=== PATIENT | female | born 2000 | race Two or more races ===

== ENCOUNTER 2019-07-07 23:30 | Inpatient (IN) ==
[2019-07-08 00:38] LABS: Albumin Level 3.7 gm/dl (3.4-5.0); BUN Creatinine Ratio 10.4 (10-20); Bilirubin,Total 0.3 mg/dl (0.2-1); Calcium 8.7 mg/dl (8.5-10.1); Creatinine Clr Calc Pharmacy 137.3 ml/min; Est GFR (African American) 144.2; Est GFR (Non-African American) 124.4; Total Protein 8.5 gm/dl (6.4-8.2)
[2019-07-08 01:04] LABS: Basophils # (auto) 0.03 K/uL (0-0.2); Basophils % (auto) 0.3 %; Eosinophils # (auto) 0.11 K/uL (0-0.5); Eosinophils % (auto) 1.1 %; Hematocrit (blood only) 37.5 % (37-47); Hemoglobin 12.2 g/dL (12.0-16.0); Immature Granulocytes # (auto) 0.02 K/uL (0.00-0.02); Immature Granulocytes % (auto) 0.2 %; Lymphocytes # (auto) 2.62 K/uL (1.2-3.4); Lymphocytes % (auto) 26.3 %; Mean Corpuscular Hgb Conc 32.5 g/dL (32-36); Monocytes # (auto) 1.01 K/uL (0.11-0.59); Monocytes % (auto) 10.1 %; Neutrophils # (auto) 6.19 K/uL (1.4-6.5); Platelet Count 248 K/uL (130-400); RDW Coefficient of Variation 13.6 % (11.5-14.5); RDW Standard Deviation 42.7 fL (36.4-46.3); Red Blood Count 4.36 M/uL (4.2-5.4); White Blood Count 9.98 K/uL (4.8-10.8)
[2019-07-08] MEDS ORDERED: cefOXitin 2,000 MG/60 ML BAG IV STA (01:05)
[2019-07-08 01:16] LABS: Potassium 3.9 mmol/L (3.5-5.1)
[2019-07-08 01:18] LABS: Pregnancy Test, Urine Negative (Negative)
[2019-07-08 01:20] LABS: Appearance Urine Cloudy (Clear); Bacteria Urine Automated 1+ (Negative); Bilirubin Urine Negative (Negative); Blood Urine Negative (Negative); Color Urine Yellow; Epithelial Cell Urine Auto >30 /lpf (0-5); Glucose Urine UA Negative (Negative); Ketones Urine Negative (Negative); Leukocyte Esterase Urine Negative (Negative); Nitrite Urine Negative (Negative); Protein Urine Negative (Negative); RBC Urine Automated 0-4 /hpf (0-4); Specific Gravity Urine 1.021 (1.000-1.030); Urobilinogen Urine Negative (Negative); pH Urine 7.5 (4.5-7.5)
[2019-07-08 01:22] LABS: Aspartate Aminotransferase 8 U/L (15-37); Bilirubin Direct < 0.1 mg/dl (0-0.2)
--- NOTE | 2019-07-08 01:23 | Surgery Consultation ---
Date of Consultation July 08, 2019 Assessment & Plan (1) Acute cholecystitis due to biliary calculus: pt is a 19 year-old female who presents to ER with 2 days history RUQ pain, U/S dx acute cholecystitis with gallstone, IMP: acute cholecystitis with gallstone, PLan, I recommend to admit to hospital NPO, IV fluid, antibiotic, repeat labs in am, possible to do laparoscopic cholecystectomy possible open or cholangiogram tomorrow, D/W benefits, risks and alternatives of the surgery, the risks - infection, bleeding injury CBD, bowel, pt understood, she agrees with the surgery, I answered all questions, History of Present Illness History of Present Illness CC: abdominal pain HPI: pt is a 19 year-old female who presents to ER with 2 days history RUQ pain with nausea and vomiting, the pain is located at RUQ, pt denies fever, no diarrhea, pt had U/S study dx acute cholecystitis, with gallstone. otherwise pt is healthy. Allergies Allergy/AdvReac Type Severity Reaction Status Date / Time No Known Allergies Allergy Unverified 07/08/19 00:44 Home Medications Home Medications Medication Instructions Recorded Confirmed Type No Known Home Medications 07/08/19 07/08/19 History Patient History Medical History No pertinent past medical history Surgical History No pertinent past surgical history Family History Other High cholesterol Hypertension Pre-diabetes Social History Feels Safe at Home: Yes Smoking Status: Never smoker Review of Systems Review of Systems: All systems reviewed & are unremarkable except as noted in HPI & below Physical Exam Constitutional: WD/WN, vitals as above well developed and well nourished ENMT: external ear and nose normal, oropharynx normal Neck: trachea midline, no thyromegaly Respiratory: normal respiratory effort, lungs clear to auscultation normal respiratory effort Cardiovascular: RRR, no murmur, no edema Rate/Rhythm: regular rate and regular rhythm Heart Sounds: normal S1 and normal S2 Gastrointestinal (Abdomen): Percussion/Palpation: abdomen soft tenderness at RUQ, no rebound pain, BS +, no distend Musculoskeletal: no cyanosis or clubbing, extremities motor strength 5/5 Skin: no rashes, warm and dry Neurologic: patellar DTR's 2+ bilat, sensation intact Psychiatric: Orientation: alert and oriented x 3 Results & Data Vital Signs (Past 12 Hours) Vital Signs Temp Pulse Resp BP Pulse Ox 07/07/19 23:33 36.9 C 94 H 16 119/71 98 Laboratory Results Abnormal lab results 07/08/19 07/08/19 07/08/19 Range/Units 00:04 00:43 00:43 MPV 11.0 H (7.4-10.4) fL [place] # (Auto) 1.01 H (0.11-0.59) K/uL Glucose 113 H (70-99) mg/dl AST 8 L (15-37) U/L Total Protein 8.5 H (6.4-8.2) gm/dl Lipase 54 L (73-393) U/L Diagnostic Findings I reviewed U/S- acute cholecystitis with gallstone
[2019-07-08] MEDS ORDERED: PIPERACILL/TAZOBAC CONSULT ACTIVE PRN (01:28)
[2019-07-08] MEDS ORDERED: PIPERACILLIN/TAZOBACTAM 3.375 GM in DEXTROSE 5% 100 ML IV SCH (01:30)
[2019-07-08] MEDS ORDERED: PIPERACILLIN/TAZOBACTAM 4.5 GM in DEXTROSE 5% 100 ML IV ONE (02:30)
[2019-07-08] MEDS: LACTATED RINGER'S 1,000 ML IV SCH ×3 (02:50→23:43)
--- NOTE | 2019-07-08 06:29 | Ultrasound Report ---
US gallbladder HISTORY: 19 years-old Female RUQ abdominal pain acute right upper quadrant abdominal pain COMPARISON: None available TECHNIQUE: Multiple real-time sonographic images of the abdominal right upper quadrant were obtained assessing grayscale appearance and color flow FINDINGS: Pancreas is mostly obscured by bowel gas. The liver appears unremarkable. Large gallstone within the gallbladder neck measures up to 2.7 cm. Thickened edematous gallbladder wall measures up to 5 mm. Ariana pected trace pericholecystic fluid. Mild layering gallbladder sludge. Sonographic Joseph sign reporte d as negative. Imaged right kidney is unremarkable without hydronephrosis. Normal common bile duct, 3 mm. IMPRESSION: 1. Cholelithiasis with gallbladder wall thickening and trace pericholecystic fluid suggests acute cho lecystitis. 2. No biliary ductal dilation. The above report was generated using voice recognition software. It may contain grammatical, syntax o r spelling errors. Electronically signed by: Damon Ramon M.D. 07/08/2019 6:27 AM
--- NOTE | 2019-07-08 06:47 | Emergency Department Note ---
Entered by Nicolás Abbott acting as a scribe for ED Provider Note Name: Mojgan Zhang Age: 19 Arrives Via: Triage Informant: Self CC: RUQ abdominal pain HPI: 19 y/o female arrives for evaluation of worsening RUQ abdominal pain beginning a two days ago. The patient states her symptoms have been intermittent since Wednesday. She reports she went to sleep last evening with her pain and it was still there when she woke up. The patient notes throughout the day it has been worsening and constant. She states she cannot touch it without worsening her discomfort. The patient reports she has mild discomfort with deep breathing as well. She notes she has a low appetite but eats because she knows she needs to. The patient states she uses alcohol but has not had any for the past few days. She reports her last menstrual period ended on the 28 of June. The patient denies vomiting, trouble defecating, urinary burning, changes in her urinary frequency, cough, chest pain, headaches, rashes, taking medication daily, drug use, lower abdominal pain, legs swelling, recent travel, vision changes, sore throat, and leg pain. She notes her mother had a cholecystectomy because she had gastric bypass surgery. ROS: See above HPI for pertinent positives & negatives. A total of 10 systems reviewed and were otherwise negative. Past Medical History: None Past Surgical History: None Family History: HTN, high cholesterol, pre-diabetes Social History: Alcohol use, denies drug use. Home Medications: None Allergies None Physical: Vitals: BP 119/71, Pulse 94, Resp 16, Temp 98.4 F, O2Sat 98 on RA. Exam: GENERAL: Patient is uncomfortable appearing and in mild distress. EYES: No scleral icterus, unremarkable pupils. ENT: Mucous membranes moist, no nasal congestion. NECK: No masses appreciated, no meningismus, trachea is midline. RESPIRATORY: No dyspnea. Clear to auscultation and equal bilaterally. No wheeze, no rhonchi. CARDIOVASCULAR: Regular rate and rhythm. No murmurs, rubs, gallops appreciated. GASTROINTESTINAL: Abdomen soft, RUQ tenderness to palpation, no peritonitis. Bowel sounds positive. No masses appreciated. BACK: No midline tenderness, no CVA tenderness EXTREMITIES: Normal motion all extremities, no cyanosis, no edema. NEUROLOGIC: Alert and oriented, no acute motor or sensory deficits, no focal weakness, cranial nerves grossly intact. SKIN: No rash, no jaundice, no diaphoresis. ED Course: Prior Medical Record, Triage/Nursing Notes, Medications, Allergies reviewed by Me Vital Signs: reviewed and remarkable for wnl Labs: Reviewed and remarkable for wnl Interventions: saline lock, mefoxin 2gm IV Imaging: [facility] Radiologist interpretation reviewed by me: US Gallbladder - Acute Calculous Cholecystitis. Consults: Dr Pino accepts to his service Reassessments/Times: 2342: Past medical records reviewed. The patient was evaluated in room B04B. A complete history and physical exam was performed. 0101: I reviewed the patient's case with Dr. Pino, General Surgery. He will evaluate the patient for further management. 0105: Upon reevaluation, the patient is resting comfortably. I discussed laboratory and radiographic results with her. She verbalized agreement of the treatment plan. The patient will be evaluated for further management and care. 0118: Dr. Pino informed the nursing staff the patient will be admitted and have surgery tomorrow. 0122: I discussed the patient's case with the mother via FaceTime. I discussed the plan for admission and how she will have her gallbladder removed in the morning. She is in agreement with this plan. Blood pressure: Normal. No Referral necessary Disposition: Hospitalization Differentials: Differential diagnoses includes but is not limited to gastritis, peptic ulcer disease, GERD, gallbladder disease, pancreatitis, small bowel obstruction, pericarditis, ischemic bowel, irritable bowel disease, irritable b owel syndrome, appendicitis, diverticulitis, malignancy, hernia, urinary tract infection, torsion, /ectopic , perforation, trauma, infectious. Medical Decision Making: Pleasant 19 yr old female with intermittent acute RUQ pain over last few days now constant. She is quite uncomfortable on arrival but declines pain medications. US consistent with cholecystitis. Labs OK. She is stable, without other abdominal TTP. Surgeon down to evaluate and will bring in for surgical correction. Impression: Acute Cholecystitis Due To Biliary Calculus Pino Jiang MD The scribe's documentation has been prepared under my direction and personally reviewed by me in its entirety. I confirm that the note above accurately reflects all work, treatment, procedures, and medical decision making performed by me. Impression & Plan Acute cholecystitis due to biliary calculus Past Med/Surg History Medical History No pertinent past medical history Surgical History No pertinent past surgical history Family History Other High cholesterol Hypertension Pre-diabetes Social History Preferred Language: [place] Communication Ability: Effective Eligibility Counselor Required: No Beliefs That Will Affect Care: None Current Living Situation: Other Current Living Situation Comment: Lives in apartment with [employer] roomates. Other Information That Helps Us Care for You: No Feels Safe at Home: Yes Safety Concerns: Feels Safe At This Time Smoking Status: Never smoker Second Hand Exposure: No ; Hx Alcohol Use: Yes Alcohol type: beer and hard liquor Hx Substance Use: No Results & Data Vital Signs Vital Signs - 24 hr 07/07/19 23:33 07/08/19 01:00 Temperature 36.9 C Temperature Source Oral Sepsis Recent Fever Within 48 Hours No Sepsis Action Taken by Nursing No Action Required Pulse Rate 94 H Pulse Rate [Right Finger] 80 Pulse Rhythm [Right Finger] Regular Pulse Strength [Right Finger] Normal Respiratory Rate 16 16 Respiratory Effort / Characteristics Non-Labored Spontaneous Non-Labored Respiratory Depth Normal Normal Respiratory Pattern Regular Blood Pressure 119/71 Blood Pressure [Right Arm] 120/76 Blood Pressure Mean 87 Blood Pressure Mean [Right Arm] 90 Blood Pressure Position Sitting Blood Pressure Position [Right Arm] Lying Pulse Oximetry 98 99 Oxygen Delivery Method Room Air Room Air Laboratory Data Result diagrams: 07/08/19 00:43 07/08/19 00:43 Lab Results 07/08/19 07/08/19 07/08/19 Range/Units 00:04 00:04 00:43 WBC Cancelled 9.98 RBC Cancelled 4.36 Hgb Cancelled 12.2 Hct Cancelled 37.5 MCV Cancelled 86.0 MCH Cancelled 28.0 MCHC Cancelled 32.5 RDW Std Deviation Cancelled 42.7 RDW Coeff of Florentino Cancelled 13.6 Plt Count Cancelled 248 MPV Cancelled 11.0 H Immature Gran % (Auto) Cancelled 0.2 Neut % (Auto) Cancelled 62.0 Lymph % (Auto) Cancelled 26.3 [place] % (Auto) Cancelled 10.1 Eos % (Auto) Cancelled 1.1 Baso % (Auto) Cancelled 0.3 Immature Gran # (Auto) Cancelled 0.02 Neut # (Auto) Cancelled 6.19 Lymph # (Auto) Cancelled 2.62 [place] # (Auto) Cancelled 1.01 H Eos # (Auto) Cancelled 0.11 Baso # (Auto) Cancelled 0.03 Absolute Nucleated RBC Cancelled Nucleated RBC % (auto) Cancelled Neutrophils % (Manual) Cancelled Band Neutrophils % Cancelled Lymphocytes % (Manual) Cancelled Prolymphocyte % Cancelled Reactive Lymphs % (Man) Cancelled Monocytes % (Manual) Cancelled Eosinophils % (Manual) Cancelled Basophils % (Manual) Cancelled Metamyelocytes % (Man) Cancelled Myelocytes % (Man) Cancelled Promyelocytes % (Man) Cancelled Blast Cells % (Manual) Cancelled Plasma Cell % (Manual) Cancelled Other Cells % Cancelled Nucleated RBC % Cancelled Neutrophils # (Manual) Cancelled Band Neutrophils # Cancelled Total Absolute Neuts Cancelled Lymphocytes # (Manual) Cancelled Prolymphocyte # Cancelled Reactive Lymphs # Cancelled Total Abs Lymphocytes Cancelled Monocytes # (Manual) Cancelled Eosinophils # (Manual) Cancelled Basophils # (Manual) Cancelled Metamyelocytes # (Man) Cancelled Myelocytes # (Manual) Cancelled Promyelocytes # (Man) Cancelled Blast Cells # (Man) Cancelled Plasma Cell # (Manual) Cancelled Other Cells # Cancelled Nucleated RBCs # (Man) Cancelled Hypersegmented Neuts Cancelled Hyposegmented Neuts Cancelled Hypogranular Neuts Cancelled Large Granular Lymphs Cancelled # Lrg Granular Lymphs Cancelled Hairy Cells Cancelled Smudge Cells Cancelled Toxic Granulation Cancelled Toxic Vacuolation Cancelled Dohle Bodies Cancelled Mehdi Rods Cancelled Platelet Estimate Cancelled Hypogranular Platelets Cancelled Clumped Platelets Cancelled Giant Platelets Cancelled Platelet Satelliting Cancelled RBC Morphology Cancelled Polychromasia Cancelled Hypochromasia Cancelled Poikilocytosis Cancelled Basophilic Stippling Cancelled Anisocytosis Cancelled Microcytosis Cancelled Macrocytosis Cancelled Spherocytes Cancelled Pappenheimer Bodies Cancelled Sickle Cells Cancelled Target Cells Cancelled Tear Drop Cells Cancelled Ovalocytes Cancelled Stomatocytes Cancelled Christianson-Lombard Bodies Cancelled Echinocytes Cancelled Acanthocytes (Spur) Cancelled Rouleaux Cancelled RBC Agglutinates Cancelled Schistocytes Cancelled RBC Morph Comment Cancelled Sezary Cell Cancelled Sodium 138 (136-145) mmol/L Potassium (3.5-5.1) mmol/L Chloride 107 (98-107) mmol/L Carbon Dioxide 26 (21-32) mmol/L Anion Gap 5.0 (3-11) BUN 7 (7-18) mg/dl Creatinine 0.69 (0.6-1.2) mg/dl Est Cr Clr Drug Dosing 137.3 ml/min Est GFR ( Amer) 144.2 Est GFR (Non-Af Amer) 124.4 BUN/Creatinine Ratio 10.4 (10-20) Glucose 113 H (70-99) mg/dl Calcium 8.7 (8.5-10.1) mg/dl Total Bilirubin 0.3 (0.2-1) mg/dl Direct Bilirubin (0-0.2) mg/dl AST (15-37) U/L ALT 17 (12-78) U/L Alkaline Phosphatase 72 (45-117) U/L Total Protein 8.5 H (6.4-8.2) gm/dl Albumin 3.7 (3.4-5.0) gm/dl Lipase 54 L (73-393) U/L Urine Color Urine Appearance (Clear) Urine pH (4.5-7.5) Ur Specific [place] (1.000-1.030) Urine Protein (Negative) Urine Glucose (UA) (Negative) Urine Ketones (Negative) Urine Blood (Negative) Urine Nitrite (Negative) Urine Bilirubin (Negative) Urine Urobilinogen (Negative) Ur Leukocyte Esterase (Negative) Urine WBC (Auto) (0-5) /hpf Urine RBC (Auto) (0-4) /hpf U Hyaline Cast (Auto) (0-5) /lpf U Epithel Cells (Auto) (0-5) /lpf Urine Bacteria (Auto) (Negative) Urine Test (Negative) 07/08/19 07/08/19 07/08/19 Range/Units 00:43 01:02 01:02 WBC RBC Hgb Hct MCV MCH MCHC RDW Std Deviation RDW Coeff of Florentino Plt Count MPV Immature Gran % (Auto) Neut % (Auto) Lymph % (Auto) [place] % (Auto) Eos % (Auto) Baso % (Auto) Immature Gran # (Auto) Neut # (Auto) Lymph # (Auto) [place] # (Auto) Eos # (Auto) Baso # (Auto) Absolute Nucleated RBC Nucleated RBC % (auto) Neutrophils % (Manual) Band Neutrophils % Lymphocytes % (Manual) Prolymphocyte % Reactive Lymphs % (Man) Monocytes % (Manual) Eosinophils % (Manual) Basophils % (Manual) Metamyelocytes % (Man) Myelocytes % (Man) Promyelocytes % (Man) Blast Cells % (Manual) Plasma Cell % (Manual) Other Cells % Nucleated RBC % Neutrophils # (Manual) Band Neutrophils # Total Absolute Neuts Lymphocytes # (Manual) Prolymphocyte # Reactive Lymphs # Total Abs Lymphocytes Monocytes # (Manual) Eosinophils # (Manual) Basophils # (Manual) Metamyelocytes # (Man) Myelocytes # (Manual) Promyelocytes # (Man) Blast Cells # (Man) Plasma Cell # (Manual) Other Cells # Nucleated RBCs # (Man) Hypersegmented Neuts Hyposegmented Neuts Hypogranular Neuts Large Granular Lymphs # Lrg Granular Lymphs Hairy Cells Smudge Cells Toxic Granulation Toxic Vacuolation Dohle Bodies Mehdi Rods Platelet Estimate Hypogranular Platelets Clumped Platelets Giant Platelets Platelet Satelliting RBC Morphology Polychromasia Hypochromasia Poikilocytosis Basophilic Stippling Anisocytosis Microcytosis Macrocytosis Spherocytes Pappenheimer Bodies Sickle Cells Target Cells Tear Drop Cells Ovalocytes Stomatocytes Christianson-Lombard Bodies Echinocytes Acanthocytes (Spur) Rouleaux RBC Agglutinates Schistocytes RBC Morph Comment Sezary Cell Sodium (136-145) mmol/L Potassium 3.9 (3.5-5.1) mmol/L Chloride (98-107) mmol/L Carbon Dioxide (21-32) mmol/L Anion Gap (3-11) BUN (7-18) mg/dl Creatinine (0.6-1.2) mg/dl Est Cr Clr Drug Dosing ml/min Est GFR ( Amer) Est GFR (Non-Af Amer) BUN/Creatinine Ratio (10-20) Glucose (70-99) mg/dl Calcium (8.5-10.1) mg/dl Total Bilirubin (0.2-1) mg/dl Direct Bilirubin < 0.1 (0-0.2) mg/dl AST 8 L (15-37) U/L ALT (12-78) U/L Alkaline Phosphatase (45-117) U/L Total Protein (6.4-8.2) gm/dl Albumin (3.4-5.0) gm/dl Lipase (73-393) U/L Urine Color Yellow Urine Appearance Cloudy A (Clear) Urine pH 7.5 (4.5-7.5) Ur Specific [place] 1.021 (1.000-1.030) Urine Protein Negative (Negative) Urine Glucose (UA) Negative (Negative) Urine Ketones Negative (Negative) Urine Blood Negative (Negative) Urine Nitrite Negative (Negative) Urine Bilirubin Negative (Negative) Urine Urobilinogen Negative (Negative) Ur Leukocyte Esterase Negative (Negative) Urine WBC (Auto) 1-5 (0-5) /hpf Urine RBC (Auto) 0-4 (0-4) /hpf U Hyaline Cast (Auto) 1-5 (0-5) /lpf U Epithel Cells (Auto) >30 H (0-5) /lpf Urine Bacteria (Auto) 1+ H (Negative) Urine Test Negative (Negative) Administered Medications Lactated Ringer's (Lr) 1,000 mls @ 100 mls/hr IV .Q10H MIN Stop: 08/07/19 01:29 Last Infusion: 07/08/19 06:31 Dose: 100 mls/hr Documented by: [id number] Infusion: 07/08/19 03:33 Dose: 100 mls/hr Documented by: [id number] Infusion: 07/08/19 02:57 Dose: 0 mls/hr Documented by: [id number] Admin: 07/08/19 02:50 Dose: 100 mls/hr Documented by: [id number] Discontinued Medications Cefoxitin Sodium (Mefoxin) 2,000 mg in 60 mls @ 100 mls/hr IV NOW STA Stop: 07/08/19 01:40 Last Infusion: 07/08/19 02:07 Dose: 0 mls/hr Documented by: [id number] Admin: 07/08/19 01:35 Dose: 100 mls/hr Documented by: [id number] Piperacillin Sod/Tazobactam (Sod 4.5 gm/ Dextrose) 120 mls @ 200 mls/hr IV NOW ONE; Protocol Stop: 07/08/19 03:05 Last Infusion: 07/08/19 03:33 Dose: 0 mls/hr Documented by: [id number] Admin: 07/08/19 02:57 Dose: 200 mls/hr Documented by: [id number] Medical Decision Making Laboratory Data Result diagrams: 07/08/19 00:43 07/08/19 00:43 Lab Results 07/08/19 07/08/19 07/08/19 Range/Units 00:04 00:04 00:43 WBC Cancelled 9.98 RBC Cancelled 4.36 Hgb Cancelled 12.2 Hct Cancelled 37.5 MCV Cancelled 86.0 MCH Cancelled 28.0 MCHC Cancelled 32.5 RDW Std Deviation Cancelled 42.7 RDW Coeff of Florentino Cancelled 13.6 Plt Count Cancelled 248 MPV Cancelled 11.0 H Immature Gran % (Auto) Cancelled 0.2 Neut % (Auto) Cancelled 62.0 Lymph % (Auto) Cancelled 26.3 [place] % (Auto) Cancelled 10.1 Eos % (Auto) Cancelled 1.1 Baso % (Auto) Cancelled 0.3 Immature Gran # (Auto) Cancelled 0.02 Neut # (Auto) Cancelled 6.19 Lymph # (Auto) Cancelled 2.62 [place] # (Auto) Cancelled 1.01 H Eos # (Auto) Cancelled 0.11 Baso # (Auto) Cancelled 0.03 Absolute Nucleated RBC Cancelled Nucleated RBC % (auto) Cancelled Neutrophils % (Manual) Cancelled Band Neutrophils % Cancelled Lymphocytes % (Manual) Cancelled Prolymphocyte % Cancelled Reactive Lymphs % (Man) Cancelled Monocytes % (Manual) Cancelled Eosinophils % (Manual) Cancelled Basophils % (Manual) Cancelled Metamyelocytes % (Man) Cancelled Myelocytes % (Man) Cancelled Promyelocytes % (Man) Cancelled Blast Cells % (Manual) Cancelled Plasma Cell % (Manual) Cancelled Other Cells % Cancelled Nucleated RBC % Cancelled Neutrophils # (Manual) Cancelled Band Neutrophils # Cancelled Total Absolute Neuts Cancelled Lymphocytes # (Manual) Cancelled Prolymphocyte # Cancelled Reactive Lymphs # Cancelled Total Abs Lymphocytes Cancelled Monocytes # (Manual) Cancelled Eosinophils # (Manual) Cancelled Basophils # (Manual) Cancelled Metamyelocytes # (Man) Cancelled Myelocytes # (Manual) Cancelled Promyelocytes # (Man) Cancelled Blast Cells # (Man) Cancelled Plasma Cell # (Manual) Cancelled Other Cells # Cancelled Nucleated RBCs # (Man) Cancelled Hypersegmented Neuts Cancelled Hyposegmented Neuts Cancelled Hypogranular Neuts Cancelled Large Granular Lymphs Cancelled # Lrg Granular Lymphs Cancelled Hairy Cells Cancelled Smudge Cells Cancelled Toxic Granulation Cancelled Toxic Vacuolation Cancelled Dohle Bodies Cancelled Mehdi Rods Cancelled Platelet Estimate Cancelled Hypogranular Platelets Cancelled Clumped Platelets Cancelled Giant Platelets Cancelled Platelet Satelliting Cancelled RBC Morphology Cancelled Polychromasia Cancelled Hypochromasia Cancelled Poikilocytosis Cancelled Basophilic Stippling Cancelled Anisocytosis Cancelled Microcytosis Cancelled Macrocytosis Cancelled Spherocytes Cancelled Pappenheimer Bodies Cancelled Sickle Cells Cancelled Target Cells Cancelled Tear Drop Cells Cancelled Ovalocytes Cancelled Stomatocytes Cancelled Christianson-[place]omb[place] Bodies Cancelled Echinocytes Cancelled Acanthocytes (Spur) Cancelled Rouleaux Cancelled RBC Agglutinates Cancelled Schistocytes Cancelled RBC Morph Comment Cancelled Sezary Cell Cancelled Sodium 138 (136-145) mmol/L Potassium (3.5-5.1) mmol/L Chloride 107 (98-107) mmol/L Carbon Dioxide 26 (21-32) mmol/L Anion Gap 5.0 (3-11) BUN 7 (7-18) mg/dl Creatinine 0.69 (0.6-1.2) mg/dl Est Cr Clr Drug Dosing 137.3 ml/min Est GFR ( Amer) 144.2 Est GFR (Non-Af Amer) 124.4 BUN/Creatinine Ratio 10.4 (10-20) Glucose 113 H (70-99) mg/dl Calcium 8.7 (8.5-10.1) mg/dl Total Bilirubin 0.3 (0.2-1) mg/dl Direct Bilirubin (0-0.2) mg/dl AST (15-37) U/L ALT 17 (12-78) U/L Alkaline Phosphatase 72 (45-117) U/L Total Protein 8.5 H (6.4-8.2) gm/dl Albumin 3.7 (3.4-5.0) gm/dl Lipase 54 L (73-393) U/L Urine Color Urine Appearance (Clear) Urine pH (4.5-7.5) Ur Specific [place] (1.000-1.030) Urine Protein (Negative) Urine Glucose (UA) (Negative) Urine Ketones (Negative) Urine Blood (Negative) Urine Nitrite (Negative) Urine Bilirubin (Negative) Urine Urobilinogen (Negative) Ur Leukocyte Esterase (Negative) Urine WBC (Auto) (0-5) /hpf Urine RBC (Auto) (0-4) /hpf U Hyaline Cast (Auto) (0-5) /lpf U Epithel Cells (Auto) (0-5) /lpf Urine Bacteria (Auto) (Negative) Urine Test (Negative) 07/08/19 07/08/19 07/08/19 Range/Units 00:43 01:02 01:02 WBC RBC Hgb Hct MCV MCH MCHC RDW Std Deviation RDW Coeff of Florentino Plt Count MPV Immature Gran % (Auto) Neut % (Auto) Lymph % (Auto) [place] % (Auto) Eos % (Auto) Baso % (Auto) Immature Gran # (Auto) Neut # (Auto) Lymph # (Auto) [place] # (Auto) Eos # (Auto) Baso # (Auto) Absolute Nucleated RBC Nucleated RBC % (auto) Neutrophils % (Manual) Band Neutrophils % Lymphocytes % (Manual) Prolymphocyte % Reactive Lymphs % (Man) Monocytes % (Manual) Eosinophils % (Manual) Basophils % (Manual) Metamyelocytes % (Man) Myelocytes % (Man) Promyelocytes % (Man) Blast Cells % (Manual) Plasma Cell % (Manual) Other Cells % Nucleated RBC % Neutrophils # (Manual) Band Neutrophils # Total Absolute Neuts Lymphocytes # (Manual) Prolymphocyte # Reactive Lymphs # Total Abs Lymphocytes Monocytes # (Manual) Eosinophils # (Manual) Basophils # (Manual) Metamyelocytes # (Man) Myelocytes # (Manual) Promyelocytes # (Man) Blast Cells # (Man) Plasma Cell # (Manual) Other Cells # Nucleated RBCs # (Man) Hypersegmented Neuts Hyposegmented Neuts Hypogranular Neuts Large Granular Lymphs # Lrg Granular Lymphs Hairy Cells Smudge Cells Toxic Granulation Toxic Vacuolation Dohle Bodies Mehdi Rods Platelet Estimate Hypogranular Platelets Clumped Platelets Giant Platelets Platelet Satelliting RBC Morphology Polychromasia Hypochromasia Poikilocytosis Basophilic Stippling Anisocytosis Microcytosis Macrocytosis Spherocytes Pappenheimer Bodies Sickle Cells Target Cells Tear Drop Cells Ovalocytes Stomatocytes Christianson-[place]omb[place] Bodies Echinocytes Acanthocytes (Spur) Rouleaux RBC Agglutinates Schistocytes RBC Morph Comment Sezary Cell Sodium (136-145) mmol/L Potassium 3.9 (3.5-5.1) mmol/L Chloride (98-107) mmol/L Carbon Dioxide (21-32) mmol/L Anion Gap (3-11) BUN (7-18) mg/dl Creatinine (0.6-1.2) mg/dl Est Cr Clr Drug Dosing ml/min Est GFR ( Amer) Est GFR (Non-Af Amer) BUN/Creatinine Ratio (10-20) Glucose (70-99) mg/dl Calcium (8.5-10.1) mg/dl Total Bilirubin (0.2-1) mg/dl Direct Bilirubin < 0.1 (0-0.2) mg/dl AST 8 L (15-37) U/L ALT (12-78) U/L Alkaline Phosphatase (45-117) U/L Total Protein (6.4-8.2) gm/dl Albumin (3.4-5.0) gm/dl Lipase (73-393) U/L Urine Color Yellow Urine Appearance Cloudy A (Clear) Urine pH 7.5 (4.5-7.5) Ur Specific [place] 1.021 (1.000-1.030) Urine Protein Negative (Negative) Urine Glucose (UA) Negative (Negative) Urine Ketones Negative (Negative) Urine Blood Negative (Negative) Urine Nitrite Negative (Negative) Urine Bilirubin Negative (Negative) Urine Urobilinogen Negative (Negative) Ur Leukocyte Esterase Negative (Negative) Urine WBC (Auto) 1-5 (0-5) /hpf Urine RBC (Auto) 0-4 (0-4) /hpf U Hyaline Cast (Auto) 1-5 (0-5) /lpf U Epithel Cells (Auto) >30 H (0-5) /lpf Urine Bacteria (Auto) 1+ H (Negative) Urine Test Negative (Negative) [facility] Narrative Discharge Plan Visit Data *Final* Discharge Date/Time: 07/08/19 02:10 Chief Complaint: Abdominal Pain Stated Complaint: ABDOMINAL PAIN, TENDERNESS TO ABDOMEN, SOB ED Provider: Pino Jiang Discharge Problem: Acute cholecystitis due to biliary calculus Patient Disposition: Admitted As Inpatient Discharge Instructions Interventions: ED Discharge Assessment Last Done: 07/08/19 02:10 The scribe's documentation has been prepared under my direction and personally reviewed by me in its entirety. I confirm that the note above accurately reflects all work, treatment, procedures, and medical decision making performed by me.
[2019-07-08 07:31] LABS: Albumin Level 3.5 gm/dl (3.4-5.0); BUN Creatinine Ratio 8.9 (10-20); Calcium 8.6 mg/dl (8.5-10.1); Creatinine Clr Calc Pharmacy 145.2 ml/min; Est GFR (African American) 147.1; Est GFR (Non-African American) 126.9; Potassium 3.7 mmol/L (3.5-5.1)
[2019-07-08 07:35] LABS: Albumin Globulin Ratio 0.9 (0.9-2); Bilirubin,Total 0.4 mg/dl (0.2-1); Total Protein 7.5 gm/dl (6.4-8.2)
[2019-07-08] MEDS: PIPERACILLIN/TAZOBACTAM 4.5 GM in DEXTROSE 5% 100 ML IV SCH ×3 (07:50→23:42)
[2019-07-08] MEDS: OXYCODONE/ACETAMINOPHEN 5mg/325mg TAB PO PRN ×3 (07:56→23:42)
--- NOTE | 2019-07-08 07:58 | Surgery Progress Note ---
Date of Service pt is still have RUQ pain, no nausea, no vomiting overnight, July 08, 2019 Assessment & Plan (1) Acute cholecystitis due to biliary calculus: pt is a 19 year-old female who presents to ER with 2 days history RUQ pain, U/S dx acute cholecystitis with gallstone, IMP: acute cholecystitis with gallstone, PLan, I recommend to admit to hospital NPO, IV fluid, antibiotic, repeat labs in am, possible to do laparoscopic cholecystectomy possible open or cholangiogram tomorrow, D/W benefits, risks and alternatives of the surgery, the risks - infection, bleeding injury CBD, bowel, pt understood, she agrees with the surgery, I answered all questions, 07/08/2019 7:56am D/W benefits, risks and alternatives of laparoscopic cholecystectomy, possible open or cholangiogram, pt understood, she agrees with the surgery, I answered all questions, Physical Exam Constitutional: WD/WN, vitals as above well developed and well nourished ENMT: external ear and nose normal, oropharynx normal Neck: trachea midline, no thyromegaly Respiratory: normal respiratory effort, lungs clear to auscultation normal respiratory effort Cardiovascular: RRR, no murmur, no edema Rate/Rhythm: regular rate and regular rhythm Heart Sounds: normal S1 and normal S2 Gastrointestinal (Abdomen): Percussion/Palpation: abdomen soft Musculoskeletal: no cyanosis or clubbing, extremities motor strength 5/5 Skin: no rashes, warm and dry Neurologic: patellar DTR's 2+ bilat, sensation intact Psychiatric: Orientation: alert and oriented x 3 Results & Data Vital Signs (Past 12 Hours) Vital Signs Temp Pulse Pulse Resp BP BP Pulse Ox 07/08/19 07:28 37.6 C H 84 18 117/74 99 07/08/19 02:18 36.9 C 91 H 18 135/84 96 07/08/19 02:10 65 16 122/76 98 07/08/19 01:00 80 16 120/76 99 07/07/19 23:33 36.9 C 94 H 16 119/71 98
[2019-07-08] MEDS ORDERED: INFLUENZA ADMINISTRATION CHARGE ONE (09:15)
[2019-07-08] MEDS ORDERED: INFLUENZA VIRUS QUAD VACCINE 0.5 ML SYR IM ONE (09:15)
[2019-07-08] MEDS ORDERED: PHENYLEPHRINE HCL 10 MG/ML VIAL ONE (11:45)
[2019-07-08] MEDS ORDERED: ePHEDrine sulfate 50 MG/ML AMP ONE (11:45)
[2019-07-08] MEDS ORDERED: NEOSTIGMINE METHYLSULFATE 5 MG/5 ML SYR ONE (11:45)
[2019-07-08] MEDS ORDERED: ONDANSETRON INJ 2 MG/ML 2 ML VIAL ONE (11:45)
[2019-07-08] MEDS ORDERED: LIDOCAINE HCL 2% 2 ML VIAL/AMP(20MG/ML) INFIL ONE (11:45)
[2019-07-08] MEDS ORDERED: PROPOFOL IV EMULSION 10 MG/ML 20 ML VIAL IV ONE ×2 (11:45→14:14)
[2019-07-08] MEDS ORDERED: MIDAZOLAM HCL 1 MG/ML 2ML VIAL ONE (11:45)
[2019-07-08] MEDS ORDERED: DEXAMETHASONE SOD INJ 4 MG/ML VIAL ONE (11:45)
[2019-07-08] MEDS ORDERED: SUCCINYLCHOLINE CHLORIDE 20 MG/ML 10 ML VIAL ONE (11:45)
[2019-07-08] MEDS ORDERED: fentaNYL citrate 100 MCG/2 ML VIAL ONE ×2 (11:45→13:15)
[2019-07-08] MEDS ORDERED: GLYCOPYRROLATE 0.2 MG/ML VIAL ONE (11:45)
[2019-07-08] MEDS ORDERED: CEFAZOLIN 2000MG 2,000 MG/15 ML SYR IV SCH (12:01)
--- NOTE | 2019-07-08 12:01 | History & Physical Bridge Note ---
Date of Service July 08, 2019 History & Physical Bridge Note I have examined the patient, reviewed the History & Physical and in the interval since the performance of the History & Physical I have noted the following changes of clinical significance: no changes noted
[2019-07-08] MEDS ORDERED: ePHEDrine sulfate 50 MG/ML AMP IV PRN (12:05)
[2019-07-08] MEDS ORDERED: ONDANSETRON INJ 2 MG/ML 2 ML VIAL IV PRN (12:05)
[2019-07-08] MEDS ORDERED: ATROPINE SULFATE 0.1 MG/ML 10ML SYR IV PRN (12:05)
--- NOTE | 2019-07-08 12:23 | Anesthesiology Consultation ---
Date of Service July 08, 2019 Assessment & Plan (1) Encounter for pre-operative examination: Chart Review Chart Review: Acceptable Risk for Surgery Consults Requested none ASA ASA2 Proposed Anesthesia Anesthesia Type: General Risk / Benefits Reviewed With: PT / POA / Parent / Guardian, Accepts Plan and Informed Consent Obtained History Surgery Operation Date: 07/08/19 15:00 Proposed Procedures p Laparoscopic Cholecystectomy - Pretty Pino MD Height/Weight Height: 5 ft 3 in Weight: 89.4 kg Allergies Allergy/AdvReac Type Severity Reaction Status Date / Time No Known Allergies Allergy Unverified 07/08/19 00:44 Medications Home Medications Medication Instructions Recorded Confirmed Last Taken No Known Home Medications 07/08/19 07/08/19 Unknown Active Medications Generic Name Dose Route Start Last Admin Trade Name Freq PRN Reason Stop Dose Admin Lactated Ringer's 1,000 mls @ 100 mls/hr 07/08/19 01:30 07/08/19 06:31 Lr IV 08/07/19 01:29 100 mls/hr .Q10H MIN Infusion Piperacillin Sod/Tazobactam 120 mls @ 30 mls/hr 07/08/19 08:00 07/08/19 12:08 Sod 4.5 gm/ Dextrose IV 07/10/19 07:59 Infused Q8H MIN Infusion Protocol Oxycodone/Acetaminophen 1 tab 07/08/19 01:28 07/08/19 07:56 Percocet 5mg/325mg PO 07/22/19 01:27 1 tab Q4H PRN Administration Pain NPO Date Last Intake of Fluids: 07/07/19 Time Last Intake of Fluids: 23:59 Date Last Intake of Solids: 07/07/19 Time Last Intake of Solids: 23:59 Past Medical History Medical History Acute cholecystitis due to biliary calculus (Acute) No pertinent past medical history Obesity Exercise / Class Metabolic Activity II 4-5 Yardwork/Stairs/Walk up hill Past Family History Family History Other High cholesterol Hypertension Pre-diabetes Past Surgical History Surgical History No pertinent past surgical history Past Anesthesia History No Hx of Anesthesia Complications and No Family Hx of Anesthesia Complications History of PONV No Hx of PONV and No Hx of Motion Sickness Social History Smoking Status: Never smoker Hx Alcohol Use: Yes Alcohol type: beer and hard liquor alcohol intake frequency: a few times a month Hx Substance Use: No Physical Exam Vital Signs Last Vital Signs Temp 99.7 F H 07/08/19 07:28 Pulse 84 07/08/19 07:28 Resp 18 07/08/19 07:28 BP 117/74 07/08/19 07:28 Pulse Ox 99 07/08/19 07:28 ENMT Mouth: no dentition abnormality Thyromental Distance: > or= 3.5 Finger Breadths Mallampati Class: I Neck normal visual inspection Respiratory normal respiratory effort Auscultation: lungs clear to auscultation bilaterally Cardiovascular Rate/Rhythm: regular rate and regular rhythm Testing Laboratory Results 07/08/19 00:43 07/08/19 06:30 Urine Color Yellow 07/08/19 01:02 Urine Appearance Cloudy (Clear) A 07/08/19 01:02 Urine pH 7.5 (4.5-7.5) 07/08/19 01:02 Ur Specific [place] 1.021 (1.000-1.030) 07/08/19 01:02 Urine Protein Negative (Negative) 07/08/19 01:02 Urine Glucose (UA) Negative (Negative) 07/08/19 01:02 Urine Ketones Negative (Negative) 07/08/19 01:02 Urine Nitrite Negative (Negative) 07/08/19 01:02 Ur Leukocyte Esterase Negative (Negative) 07/08/19 01:02 Urine WBC (Auto) 1-5 /hpf (0-5) 07/08/19 01:02 Urine RBC (Auto) 0-4 /hpf (0-4) 07/08/19 01:02 U Hyaline Cast (Auto) 1-5 /lpf (0-5) 07/08/19 01:02 U Epithel Cells (Auto) >30 /lpf (0-5) H 07/08/19 01:02 Urine Bacteria (Auto) 1+ (Negative) H 07/08/19 01:02 Urine Test Negative (Negative) 07/08/19 01:02 07/08/19 01:02 Urine Test Negative
[2019-07-08] MEDS ORDERED: BACITRACIN OINT 15 GM TUBE ONE (12:31)
[2019-07-08] MEDS ORDERED: BUPIVACAINE 0.5 % 5 MG/1 ML MPF 30ML VIAL ONE (12:31)
[2019-07-08] MEDS ORDERED: LIDOCAINE HCL 1% 20 ML VIAL ONE (12:31)
[2019-07-08] MEDS ORDERED: CEFAZOLIN 250 MG/ML 1 GM VIAL ONE ×2 (13:26)
--- NOTE | 2019-07-08 14:14 | Post Operative Brief Note ---
Immediate Post Op Note v1 Date of Surgery July 08, 2019 Pre & Post Diagnosis Operation Date: 07/08/19 15:00 Pre-Op Diagnosis: acute cholecystitis, cholelithiasis Post-Op Diagnosis: acute cholecystitis, cholelithiasis I identified the patient and participated in the time-out.: Yes Procedure Operation Date: 07/08/19 15:00 Actual Procedures p Laparoscopic Cholecystectomy - Pretty Pino MD Surgeon Pretty Pino MD Excavation Laborer MARCUS Bello Estimated Blood Loss 20 Findings Consistent with Post-Op Diagnosis significant inflammation on gallbladder wall, Fluids 1000ml Specimens gallbladder Anesthesia Type General Complications none Disposition Accompanied Patient To Recovery: Yes Disposition: Recovery Room Overlapping Procedure I was immediately available: during the entire case.
[2019-07-08] MEDS ORDERED: ROCURONIUM BROMIDE 10 MG/ML 5 ML VIAL ONE (14:19)
[2019-07-08] MEDS ORDERED: LABETALOL HCL IV 5 MG/ML 20ML IV ONE (14:19)
[2019-07-08] MEDS: fentaNYL citrate 100 MCG/2 ML VIAL IV PRN ×2 (14:51→14:56)
[2019-07-08] MEDS ORDERED: HYDROmorphone INJ 0.5 MG/0.5 ML SYR IV PRN (15:31)
--- NOTE | 2019-07-08 15:31 | Anesthesiology Progress Note ---
Date of Service July 08, 2019 Anesthesia Post Procedure Vital Signs Vital Signs: Temp Pulse Pulse Pulse Resp BP BP 07/08/19 15:05 97.7 F 67 16 132/74 07/08/19 14:55 64 16 138/78 07/08/19 14:45 74 16 135/71 07/08/19 14:39 97.9 F 82 16 128/66 07/08/19 07:28 99.7 F H 84 18 117/74 07/08/19 02:18 98.4 F 91 H 18 135/84 07/08/19 02:10 65 16 122/76 07/08/19 01:00 80 16 120/76 07/07/19 23:33 98.4 F 94 H 16 119/71 Pulse Ox 07/08/19 15:05 96 07/08/19 14:55 98 07/08/19 14:45 100 07/08/19 14:39 100 07/08/19 07:28 99 07/08/19 02:18 96 07/08/19 02:10 98 07/08/19 01:00 99 07/07/19 23:33 98 Pain Intensity Right Upper Abdomen: Pain Intensity: 6 Transfer of Care Handoff Completed per policy Notes Mental Status: alert / awake / arousable and participated in evaluation Patient Amnestic to Procedure: Yes Nausea / Vomiting: adequately controlled Pain: adequately controlled Airway Patency, RR, SpO2: stable & adequate BP & HR: stable & adequate Hydration State: stable & adequate Anesthetic Complications: no major complications apparent and Pt Satisfied with anesthetic care
--- NOTE | 2019-07-08 18:10 | Operative Report ---
DATE OF OPERATION: 07/08/2019 PREOPERATIVE DIAGNOSES: Acute cholecystitis, cholelithiasis. POSTOPERATIVE DIAGNOSES: Acute cholecystitis, cholelithiasis. OPERATION: Laparoscopic cholecystectomy. SURGEON: Pretty Pino MD. [employer] MANUFA[employer]URING SUPERVISOR: Dorinda Palacios PA-C. ANESTHESIA: General. ESTIMATED BLOOD LOSS: About 20 mL. FINDINGS: Significant inflammation on the gallbladder wall, gallbladder wall thickening and edema. COMPLICATIONS: None. INDICATIONS FOR THE PROCEDURE: This is a 19-year-old female who presented to the ED with a couple day history of right upper quadrant pain. The patient had an ultrasound diagnosis of acute cholecystitis with cholelithiasis. The patient is required to do the laparoscopic cholecystectomy, possible open, possible cholangiogram. I did talk to the patient about the benefit, risk, and alternate procedure. I indicated the risks may include but not limited to such as bleeding, infection, injury to common bile duct, injury to the bowel, incisional hernia, may need ERCP. The patient understands. She signed informed consent and I answered all questions. DETAILS OF PROCEDURE: We brought the patient to the OR, put the patient in the supine position. The patient received SCD on bilateral legs to prevent DVT. Also, patient received 2 grams of Ancef IV for prophylactic antibiotic. The patient received general anesthesia without difficulty. The abdomen was prepped and draped in routine sterile fashion. After time-out, I injected local anesthesia by using 1% lidocaine mixed with 0.5% Marcaine just above the umbilicus. Then, I made a small incision just above the umbilicus, opened fascia and opened peritoneum under direct vision, put a David trocar in, connected to CO2 to create pneumoperitoneum, flow rate at 6 liter per minute, pressure not more than 14 mmHg. Once we got a nice pneumoperitoneum, we put a camera in, looked around the abdomen, which shows normal finding on the liver. However, the gallbladder showed significant distention, gallbladder wall thickening, edema, confirmed the diagnosis of acute cholecystitis. Then, we put another two 5 mm trocars on the right upper quadrant, one 11 trocar on the epigastric area. Then, we used a large needle to decompress the gallbladder first. Then, we used a grasper to hold the base of gallbladder, put in the direction to the diaphragm, another grasper to hold the pouch of gallbladder, put a lateral to explore the triangle of Calot. The cystic duct was identified and mobilized. I put two 10 mm metal clips on the proximal cystic duct, one on the distal cystic duct. I then used scissors for transection of the cystic duct. Rechecked and no bile leak. The cystic artery was identified and mobilized. I put two 5 mm metal clips on the proximal cystic artery, one on the distal cystic artery, then used scissors for transection of cystic artery. Rechecked, no active bleeding. Then, we used the Bovie to take down gallbladder from the liver bed and we checked again, no bile leak and no active bleeding from the liver bed, then we removed gallbladder through the catch bag. Then, we reinserted David trocar in, connected to CO2 to create pneumoperitoneum, again looked around the abdomen, no active bleeding, no bile leak from the liver bed. Then, we removed all trocars under direct vision. No active bleeding from the trocar sites. Pneumoperitoneum was released. Then, we closed the umbilical incision fascial layer by using #1 Vicryl [id number] x2, closed subcutaneous layer by using 2-0 Vicryl interruptedly, closed skin by using 4-0 Vicryl continuous running, closed the epigastric area incision fascial layer by using #1 Vicryl [id number] x2, closed subcutaneous layer by using 2-0 Vicryl interruptedly, closed skin by using 4-0 Vicryl interruptedly, closed another two 5 mm trocar site skin only by using 4-0 Vicryl and then we put the dressing on. The patient tolerated the procedure well. All instrument, needle and sponge count were correct x2 at the end of the case. The patient was transferred to recovery room in stable condition. The specimen was sent to pathology. After procedure, I did talk to the patient's parents about the OR finding and the procedure we did, they understand. I also gave them postop care instructions. I attest to the content of the Intraoperative Record and any orders documented therein. Any exception s are noted below.
[2019-07-09 06:12] LABS: Basophils # (auto) 0.02 K/uL (0-0.2); Basophils % (auto) 0.2 %; Hematocrit (blood only) 35.1 % (37-47); Hemoglobin 11.3 g/dL (12.0-16.0); Immature Granulocytes # (auto) 0.02 K/uL (0.00-0.02); Immature Granulocytes % (auto) 0.2 %; Lymphocytes # (auto) 1.74 K/uL (1.2-3.4); Lymphocytes % (auto) 18.1 %; Mean Corpuscular Hemoglobin 28.1 pg (25-34); Mean Corpuscular Hgb Conc 32.2 g/dL (32-36); Mean Corpuscular Volume 87.3 fL (80-100); Mean Platelet Volume 11.2 fL (7.4-10.4); Monocytes # (auto) 0.78 K/uL (0.11-0.59); Monocytes % (auto) 8.1 %; Neutrophils # (auto) 7.06 K/uL (1.4-6.5); Neutrophils % (auto) 73.4 %; Platelet Count 220 K/uL (130-400); RDW Coefficient of Variation 13.9 % (11.5-14.5); RDW Standard Deviation 44.6 fL (36.4-46.3); Red Blood Count 4.02 M/uL (4.2-5.4); White Blood Count 9.62 K/uL (4.8-10.8)
[2019-07-09 06:22] LABS: Alanine Aminotransferase 17 U/L (12-78); Aspartate Aminotransferase 14 U/L (15-37); BUN Creatinine Ratio 5.1 (10-20); Blood Urea Nitrogen 3 mg/dl (7-18); Calcium 8.6 mg/dl (8.5-10.1); Carbon Dioxide 24 mmol/L (21-32); Chloride 108 mmol/L (98-107); Creatinine Clr Calc Pharmacy 174.8 ml/min; Est GFR (African American) > 150.0; Est GFR (Non-African American) 134.9; Glucose 95 mg/dl (70-99); Potassium 3.8 mmol/L (3.5-5.1); Sodium 139 mmol/L (136-145)
[2019-07-09 06:24] LABS: Albumin Globulin Ratio 0.8 (0.9-2); Alkaline Phosphatase 54 U/L (45-117); Bilirubin,Total 0.3 mg/dl (0.2-1); Globulin 3.8 gm/dl (2.5-4.0); Total Protein 6.8 gm/dl (6.4-8.2)
[2019-07-09] MEDS: OXYCODONE/ACETAMINOPHEN 5mg/325mg TAB PO PRN (07:39)
[2019-07-09] MEDS: LACTATED RINGER'S 1,000 ML IV SCH (07:41)
[2019-07-09] MEDS: PIPERACILLIN/TAZOBACTAM 4.5 GM in DEXTROSE 5% 100 ML IV SCH (08:07)
--- NOTE | 2019-07-09 08:56 | Surgery Progress Note ---
Date of Service July 09, 2019 Assessment & Plan (1) Acute cholecystitis due to biliary calculus: POD # 1 s/p laparoscopic cholecystectomy -vitals stable, afebrile - post op pain controlled - no n/v, tolerating full liquids Plan: Discharge home discharge instructions reviewed f/u surgical office in 2 weeks Rx for Percocet prn pain sent to [facility] Dr. Andrade has seen and examined pt, agrees with above Subjective feeling better pain controlled tolerated full liquids no n/v urinating without difficulty Physical Exam Constitutional: WD/WN, vitals as above no acute distress Respiratory: normal respiratory effort Gastrointestinal (Abdomen): Inspection/Auscultation: abdomen normal to inspection; abdomen not distended Percussion/Palpation: abdomen soft; abdomen nontender, no guarding and abdomen not rigid Skin: no rashes, warm and dry + incision (Covered with dressings, spotting present) Psychiatric: A+Ox3, euthymic affect Results & Data Vital Signs (Past 12 Hours) Vital Signs Temp Pulse Resp BP Pulse Ox 07/09/19 03:07 36.8 C 82 14 113/73 97 07/08/19 23:37 37.0 C 80 15 147/76 H 97 Laboratory Results 07/09/19 07/09/19 Range/Units 05:35 05:35 WBC 9.62 (4.8-10.8) K/uL RBC 4.02 L (4.2-5.4) M/uL Hgb 11.3 L (12.0-16.0) g/dL Hct 35.1 L (37-47) % MCV 87.3 (80-100) fL MCH 28.1 (25-34) pg MCHC 32.2 (32-36) g/dL RDW Std Deviation 44.6 (36.4-46.3) fL RDW Coeff of Florentino 13.9 (11.5-14.5) % Plt Count 220 (130-400) K/uL MPV 11.2 H (7.4-10.4) fL Immature Gran % (Auto) 0.2 % Neut % (Auto) 73.4 % Lymph % (Auto) 18.1 % Meade % (Auto) 8.1 % Eos % (Auto) 0.0 % Baso % (Auto) 0.2 % Immature Gran # (Auto) 0.02 (0.00-0.02) K/uL Neut # (Auto) 7.06 H (1.4-6.5) K/uL Lymph # (Auto) 1.74 (1.2-3.4) K/uL Meade # (Auto) 0.78 H (0.11-0.59) K/uL Eos # (Auto) 0.00 (0-0.5) K/uL Baso # (Auto) 0.02 (0-0.2) K/uL Sodium 139 (136-145) mmol/L Potassium 3.8 (3.5-5.1) mmol/L Chloride 108 H (98-107) mmol/L Carbon Dioxide 24 (21-32) mmol/L Anion Gap 7.0 (3-11) BUN 3 L (7-18) mg/dl Creatinine 0.54 L (0.6-1.2) mg/dl Est Cr Clr Drug Dosing 174.8 ml/min Est GFR ( Amer) > 150.0 Est GFR (Non-Af Amer) 134.9 BUN/Creatinine Ratio 5.1 L (10-20) Glucose 95 (70-99) mg/dl Calcium 8.6 (8.5-10.1) mg/dl Total Bilirubin 0.3 (0.2-1) mg/dl AST 14 L (15-37) U/L ALT 17 (12-78) U/L Alkaline Phosphatase 54 (45-117) U/L Total Protein 6.8 (6.4-8.2) gm/dl Albumin 3.0 L (3.4-5.0) gm/dl Globulin 3.8 (2.5-4.0) gm/dl Albumin/Globulin Ratio 0.8 L (0.9-2)
--- NOTE | 2019-07-10 12:20 | Discharge Summary ---
Date of Service July 10, 2019 Admission HPI Per Admitting Provider pt is a 19 year-old female who presents to ER with 2 days history RUQ pain with nausea and vomiting, the pain is located at RUQ, pt denies fever, no diarrhea, pt had U/S study dx acute cholecystitis, with gallstone. otherwise pt is healthy. Principal Diagnosis acute calculous cholecystitis Discharge Data Allergies Allergy/AdvReac Type Severity Reaction Status Date / Time No Known Allergies Allergy Unverified 07/08/19 00:44 Consultations 07/08/19 01:32 ED Decision to Admit Stat Procedures Performed Operation Date: 07/08/19 15:00 Actual Procedures p Laparoscopic Cholecystectomy - Pretty Pino MD Ordered Studies 07/08/19 23:47 US gallbladder Urgent Hospital Course (1) Acute cholecystitis due to biliary calculus: Patient was admitted to medical/surgical floor from emergency department and started on iV fluids, IV pain medication prn , IV Zofran prn nausea, IV antibiotics, and kept npo for laparoscopic cholecystectomy the next morning. Patient was found to have cholecystitis and tolerated procedure well without any difficulty. Was transferred back to medical/surgical floor for postoperative care. Her diet was advanced to clears and then full liquids. IV pain manag ement was continued with PO Percocet. POD # 1 vitals stable, afebrile, post op pain controlled, no n/v, tolerating full liquids. She was discharged home on POD # 1 in stable condition. Total Time Total Time Spent Total Time Spent (In Minutes): 20 Total Time Includes: Examination of the Patient, Discharge Planning and Medication Reconciliation Discharge Plan Discharge Items Patient Disposition: Home - Self-Care Reason For Visit: VOMITING, LOWER ABDOMINAL PAIN Discharge Diagnosis: S/P laparoscopic cholecystectomy Condition on Discharge: Good Activity: As commented below Lifting: No more than 10 pounds Lifting Comment: for 2 weeks Bathing Comment: May shower tomorrow Sexual Activity: After two weeks Exercise/Sports: Wait until after follow-up appointment Driving/Machine Use: No driving for 1 week or until pain free Non-emergency contact: Surgeon Call non-emergency contact if: your pain is not controlled, your pain is worsening, your pain is concerning for you, you have a fever, your temperature is above 101, your wound has increased redness, your wound has increased drainage and your wound pain has increased Follow-up/Referrals: [facility] [Primary Care Provider] - (follow up Dr. Pino in 1-2 weeks, Agree-I have documented within the medical record.) Diet: Regular Addtl Attending Provider Instructions: May take extra strength Tylenol or Ibuprofen as needed for mild pain -Avoid Tylenol while taking Percocet as Percocet has Tylenol in it - May take 650 mg of Tylenol every 6 hours as needed for mild pain - May take 600 mg of Ibuprofen every 6 hours as needed for mild pain (Take with food) Recommend stool softener while taking pain medication (such as OTC Colace) Pending Studies at Discharge: Yes Studies:: gallbladder pathology report Stand-Alone Forms: My [facility], Opioid Pain Management, Smoking Cessation Medications and DC Order Prescriptions: New oxycodone-acetaminophen 5-325 mg tablet 1 tab PO Q4H PRN (Reason: pain) Qty: 5 RF: 0 No Action No Known Home Medications RF: 0 Discharge Orders: Discharge Order (Routine); Ordered 07/09/19 Ordered By: Dorinda Palacios Admission Data Admit Date/Time: 07/08/19 01:28 Attending Provider: Pretty Pino Admit Provider: Pretty Pino Primary Care Provider: [facility] Other Providers: Pretty Pino Other Interventions: Discharge Summary Assessment (RN) Last Done: 07/09/19 09:15 DC Date/Time DO NOT enter until pt leaves facility: 07/09/19 10:55
== END 2019-07-09 10:55 | disposition home or self-care (01) | DRG 419 ==
LOC: ED 23:30 → 3N 07-08 01:28